=== PATIENT | male | born 1990 | race Two or more races ===

== ENCOUNTER 2019-10-18 20:22 | Emergency (ER) | payer OTHER ==
[~2019-10-18] VITALS: Ht 165.1 cm; Wt 72.7 kg
[2019-10-18 21:14] VITALS: BP 141/81
[2019-10-18] MEDS ORDERED: FLUORESCEIN OPHTH TEST STRIP. ONE (21:25)
[2019-10-18] MEDS ORDERED: TETRACAINE 0.5% OPHTH SOLUTION 4ML BOTTLE. ONE (21:25)
[2019-10-18] MEDS ORDERED: DIPH,PERTUSS(ACELL),TET VAC/PF 0.5 ML SYRINGE. VAX IM ONE ×2 (21:27→23:00)
[2019-10-18] MEDS ORDERED: FLUORESCEIN OPHTH TEST STRIP. OD ONE (21:30)
[2019-10-18] MEDS ORDERED: TETRACAINE 0.5% OPHTH SOLUTION 4ML BOTTLE. OD ONE (21:30)
[2019-10-18] MEDS ORDERED: ERYTHROMYCIN 0.5% OPHTH OINTMENT 1GM TUBE. OD ONE (22:45)
[2019-10-18] MEDS ORDERED: HYDR-2761 PO (22:58)
[2019-10-18] MEDS ORDERED: ERYT1OIN6 OD (22:58)
--- NOTE | 2019-10-18 22:59 | PHYS DOC ---
Past Medical History Past Medical History: Gallstones General Adult EDM: Chief Complaint: EYE PROBLEMS HPI: HPI: Patient is a 29 year old male, accompanied by his significant other, who presents to the emergency department with complaints of pain in the lateral aspect of his right eye since yesterday. Patient states he was cutting a metal pipe with a saw when he felt something go into his eye. He denies any vision changes, fever, or discharge from his eye. He currently rates his pain a 6 out of 10 on the pain scale, he denies any alleviating or exacerbating factors, the pain does not radiate anywhere. Patient denies any medical or surgical history. He is unsure of when his last tetanus shot was. Review of Systems: Review of Systems: Constitutional: Denies fever or chills. [] Eyes: Denies change in visual acuity.; See HPI [] Neurologic: Denies headachE Psychiatric: Denies depression or anxiety. [] Heart Score: Risk Factors: Risk Factors: DM, Current or recent (<one month) smoker, HTN, HLP, family history of CAD, obesity. Risk Scores: Score 0 - 3: 2.5% MACE over next 6 weeks - Discharge Home Score 4 - 6: 20.3% MACE over next 6 weeks - Admit for Clinical Observation Score 7 - 10: 72.7% MACE over next 6 weeks - Early Invasive Strategies Current Medications: Current Medications Medications (Trade) Dose Ordered Sig/Francisco Javier Start Time Stop Time Status Last Admin Dose Admin Diphtheria/ Tetanus/Acell Pertussis (ADACEL TDap SYRINGE) 0.5 ml STK-MED ONCE 10/18/19 21:27 10/18/19 21:27 DC Fluorescein Sodium (Ful-Adele) 1 strip 1X ONCE 10/18/19 21:30 10/18/19 21:31 DC Tetracaine HCl (Tetracaine) 1 drop 1X ONCE 10/18/19 21:30 10/18/19 21:31 DC Allergies: Allergies: Allergies Coded Allergies Type Severity Reaction Last Updated Verified No Known Drug Allergies 10/18/19 No Physical Exam: PE: Constitutional: Well developed, well nourished, no acute distress, non-toxic appearance. [] HENT: Normocephalic, atraumatic, bilateral external ears normal, nose normal. [] Eyes: PERRLA, EOMI, left eye conjunctiva normal, no discharge: Right eye no visible foreign body, no rust ring, lateral conjunctive injected. [] Neck: Normal range of motion, no stridor. [] Cardiovascular:Heart rate regular rhythm Lungs & Thorax: Respirations even and unlabored, no retractions, no respiratory distress Skin: Warm, dry, no erythema, no rash. [] Extremities: No cyanosis, ROM intact, no edema. [] Neurologic: Alert and oriented X 3, no focal deficits noted. [] Psychologic: Affect normal, judgement normal, mood normal. [] EKG: EKG: [] Radiology/Procedures: Radiology/Procedures: Using tetracaine and fluroscein the patient's right eye was examined under Wood's lamp and an area of uptake at approximately 9:00 over the lateral conjunctive a was noted, there was no visible foreign body or rust ring. Patient's ocular symptoms have stabilized while they have been evaluated in the department and are appropriate for outpatient work up. No evidence of ruptured globe, retinal detachment, acute angle closure glaucoma, or deep space infection. Plan for 24 hour ophthalmologic follow up. [] Course & Med Decision Making: Course & Med Decision Making Pertinent Labs and Imaging studies reviewed. (See chart for details) [] Dragon Disclaimer: Dragon Disclaimer: This electronic medical record was generated, in whole or in part, using a voice recognition dictation system. Departure Departure Impression: Primary Impression: Abrasion of conjunctiva, right Qualified Codes: S05.01XA - Injury of conjunctiva and corneal abrasion without foreign body, right eye, initial encounter Additional Impression: Need for Tdap vaccination Disposition: HOME, SELF-CARE Condition: STABLE Referrals: NO PCP (PCP) Patient Instructions: Eye - Conjunctival Foreign Body Additional Instructions: Fill the prescriptions and use them as directed. You might purchase a eye patch at a local pharmacy to wear for comfort. Follow-up with Dr. Donaldson tomorrow for reevaluation. Return to the ER if symptoms worsen. Scripts Hydrocodone Bit/Acetaminophen (HYDROCODONE-APAP 5-325 ) 1 Tab Tablet 1 TAB PO PRN Q6HRS PRN for PAIN for 3 Days, #10 TAB 0 Refills Prov: RAPHAEL SIMENTAL PHYSICIAN SUPPORT COORDINATOR 10/18/19 Erythromycin Base (Erythromycin) 1 Gm Oint...g. 0.5 INCH OD QID for 5 Days, #1 TUBE 0 Refills Prov: RAPHAEL SIMENTAL PHYSICIAN SUPPORT COORDINATOR 10/18/19 Justicifation of Admission Dx: Justifications for Admission: Justification of Admission Dx: RAPHAEL Vidal PHYSICIAN SUPPORT COORDINATOR Oct 18, 2019 22:59
== END 2019-10-18 23:15 | disposition home or self-care (01) ==
LOC: ER 20:22 → EDBD 20:22 → ER 23:15
DX: S05.01XA Injury of conjunctiva and corneal abrasion without foreign body, right eye, initial encounter (principal); Z87.442 Personal history of urinary calculi; X18.XXXA Contact with other hot metals, initial encounter; Y93.89 Activity, other specified; Y92.89 Other specified places as the place of occurrence of the external cause; Y99.8 Other external cause status
CPT/HCPCS: 90471; 90715; 99283